=== PATIENT | female | born 1985 | race Two or more races ===

== ENCOUNTER 2018-09-17 09:15 | Emergency (ER) | payer OTHER ==
[2018-09-17 09:27] VITALS: TEMP 98.7; BMI 24.4
--- NOTE | 2018-09-17 10:11 | PDOC ---
History of Present Illness <Nara Solares - Last Filed: 09/17/18 13:56> - History of Present Illness Initial Comments: Ms. Stanley is a 32F by , 10 weeks , presenting today with vaginal bleeding, back pain, and cramping. Reports that she woke up this morning and noticed some blood in her underwear, similar in quantity to a period. Reports that she also noticed blood while she was urinating. Reports some chills. Denies fever. Denies blood clots. Reports mild shortness of breath and LUQ pain last night. Denies nausea and vomiting. She last saw her OB 2 weeks ago, and has another appointment on Tuesday. Continues taking vitamins. No known complications with prior pregnancies. <Zana Mclean - Last Filed: 09/17/18 19:37> - General Chief Complaint: Vaginal Bleeding Stated Complaint: 10 WK PREG / BLEED Time Seen by Provider: 09/17/18 09:30 Past History <Nara Solares - Last Filed: 09/17/18 13:56> - Past Medical History Asthma: Yes (uses albuterol prn) Cancer: No Cardiac Disorders: No COPD: No Diabetes: No HTN: No Seizures: No Thyroid Disease: No - Suicide/Smoking/Psychosocial Hx Smoking History: Never smoked Have you smoked in the past 12 months: No Hx Alcohol Use: No Drug/Substance Use Hx: No Hx Substance Use Treatment: No <Zana Mclean - Last Filed: 09/17/18 19:37> - Past Medical History Allergies/Adverse Reactions: Allergies Allergy/AdvReac Type Severity Reaction Status Date / Time No Known Allergies Allergy Verified 09/17/18 09:27 Home Medications: Ambulatory Orders Albuterol Sulfate Inhaler - [Ventolin HFA Inhaler -] 1 inhaler PRN 12/13/14 Vit/Iron Fum/Folic AC [ Tablet] 1 each PO DAILY 12/13/14 Ferrous Sulfate [Feosol] 325 mg PO DAILY 02/23/15 Ibuprofen [Motrin -] 600 mg PO QID PRN #60 tablet 02/25/15 Oxycodone HCl/Acetaminophen [Percocet 5/325 -] 1 tab PO Q4H #20 tablet 02/25/15 Review of Systems - Review of Systems Comments:: GENERAL/CONSTITUTIONAL: No fever. No weakness. Reports chills. HEAD, EYES, EARS, NOSE AND THROAT: No change in vision. No ear pain or discharge. No sore throat._ CARDIOVASCULAR: No chest pain or shortness of breath_ RESPIRATORY: Denies cough, hemoptysis. Reports shortness of breath (resolved). GASTROINTESTINAL: No nausea, vomiting, diarrhea or constipation. Reports LUQ pain (resolved). GENITOURINARY: No dysuria, frequency, or change in urination. Reports cramping. Reports vaginal bleeding. MUSCULOSKELETAL: No joint or muscle swelling or pain. Reports back pain. SKIN: No rash_ NEUROLOGIC: No headache, vertigo, loss of consciousness, or change in strength/ sensation. ENDOCRINE: No increased thirst. No abnormal weight change_ HEMATOLOGIC/LYMPHATIC: No anemia, easy bleeding, or history of blood clots._ ALLERGIC/IMMUNOLOGIC: No hives or skin allergy._ <Zana Mclean - Last Filed: 09/17/18 19:37> *Physical Exam - Vital Signs Last Vital Signs Temp Pulse Resp BP Pulse Ox 98.7 F 63 18 123/70 100 09/17/18 09:25 09/17/18 09:25 09/17/18 09:25 09/17/18 09:25 09/17/18 10:50 <Nara Solares - Last Filed: 09/17/18 13:56> - Vital Signs Last Vital Signs Temp Pulse Resp BP Pulse Ox 98.7 F 63 18 123/70 99 09/17/18 09:25 09/17/18 09:25 09/17/18 09:25 09/17/18 09:25 09/17/18 09:25 - Physical Exam Comments: GENERAL: Awake, alert, and oriented to person/place/time, in no acute distress_ HEAD: No signs of trauma, normocephalic, atraumatic _ EYES: PERRLA, EOMI, sclera anicteric, conjunctiva clear_ ENT: Hearing grossly normal, nares patent, oropharynx clear without exudates. No uvular deviation. Moist mucosa_ NECK: Normal ROM, supple, no lymphadenopathy, JVD, or masses_ LUNGS: No distress, speaks in full sentences, clear to auscultation bilaterally _ HEART: Regular rate and rhythm, normal S1 and S2, no murmurs appreciated, peripheral pulses normal and equal bilaterally._ ABDOMEN: Soft, normoactive bowel sounds. RLQ tenderness to palpation and LLQ pressure on palpation. PELVIC: Os closed, minimal blood clots visualized in the posterior fornix. No tenderness to left or right adnexa on bimanual exam. EXTREMITIES: Normal inspection, Normal range of motion, no edema. No clubbing or cyanosis_ NEUROLOGICAL: Cranial nerves II through XII grossly intact. Normal speech, normal gait, no focal sensorimotor deficits _ SKIN: Warm, Dry, normal turgor, no rashes or lesions noted_ <Zana Mclean - Last Filed: 09/17/18 19:37> ED Treatment Course - LABORATORY CBC & Chemistry Diagram: 09/17/18 11:00 09/17/18 11:00 - ADDITIONAL ORDERS Additional order review: Laboratory Results 09/17/18 09/17/18 09/17/18 11:00 11:00 11:00 Sodium 139 Potassium 4.1 Chloride 106 Carbon Dioxide 26 Anion Gap 7 L BUN 6.5 L Creatinine 0.4 L Est GFR (CKD-EPI)AfAm 161.99 Est GFR (CKD-EPI)NonAf 139.77 Random Glucose 88 Calcium 8.9 Total Bilirubin 0.3 AST 10 L ALT 22 Alkaline Phosphatase 67 Total Protein 7.0 Albumin 3.3 L Beta HCG, Quant Urine Color Yellow Urine Appearance Clear Urine pH 8.5 H D Ur Specific Harbinger 1.011 Urine Protein Negative Urine Glucose (UA) Negative Urine Ketones Negative Urine Blood 2+ H Urine Nitrite Negative Urine Bilirubin Negative Urine Urobilinogen 0.2 Ur Leukocyte Esterase Negative Urine WBC (Auto) 0 Urine RBC (Auto) 2 Urine Casts (Auto) 1 U Epithel Cells (Auto) 1.6 Urine Bacteria (Auto) 33.3 Blood Type O POSITIVE Antibody Screen Negative 09/17/18 11:00 Sodium Potassium Chloride Carbon Dioxide Anion Gap BUN Creatinine Est GFR (CKD-EPI)AfAm Est GFR (CKD-EPI)NonAf Random Glucose Calcium Total Bilirubin AST ALT Alkaline Phosphatase Total Protein Albumin Beta HCG, Quant 28743.9 Urine Color Urine Appearance Urine pH Ur Specific Harbinger Urine Protein Urine Glucose (UA) Urine Ketones Urine Blood Urine Nitrite Urine Bilirubin Urine Urobilinogen Ur Leukocyte Esterase Urine WBC (Auto) Urine RBC (Auto) Urine Casts (Auto) U Epithel Cells (Auto) Urine Bacteria (Auto) Blood Type Antibody Screen 09/17/18 11:00 RBC 4.52 MCV 87.5 MCHC 32.7 RDW 13.8 D MPV 8.3 Neutrophils % 69.9 Lymphocytes % 23.5 D Monocytes % 5.2 Eosinophils % 1.1 Basophils % 0.3 - Medications Given in the ED: ED Medications Discontinued Medications Generic Name Dose Route Start Last Admin Trade Name Bailey PRN Reason Stop Dose Admin Sodium Chloride 1,000 ml 09/17/18 11:20 09/17/18 11:52 Normal Saline - IV 09/17/18 11:21 1,000 ml ONCE ONE Administration <Nara Solares - Last Filed: 09/17/18 13:56> - LABORATORY CBC & Chemistry Diagram: 09/17/18 11:00 09/17/18 11:00 <Zana Mclean - Last Filed: 09/17/18 19:37> Medical Decision Making - Medical Decision Making 32F s/p and 10 weeks presenting with vaginal bleeding that started today associated with back pain and cramping. Feels that it is similar to her periods. No fever, no blood clots. No hx of STIs. Last OB visit 2 weeks ago, next one in 2 days. DDx includes threatened , molar , ectopic , ovarian torsion. Will obtain CBC, CMP, beta HCG quant, UA and urine culture, type and screen. 09/17/18 11:24 POC transabdominal US shows IUP, FHR of 178, possible ovarian cyst of 3cm x 2.5 cm. 09/17/18 12:20 OB US shows single intrauterine gestation of 12 weeks 0 days. FHR 179 bpm. Small right ovarian cyst. No torsion. 09/17/18 1300 Patient likely has threatened . We will discharge home with instructions for rest and pain control and strict return precautions to the ED as well as follow up with her OB in 2 days. <Zana Mclean - Last Filed: 09/17/18 19:37> *DC/Admit/Observation/Transfer <Nara Solares - Last Filed: 09/17/18 13:56> - Discharge Dispostion Decision to Admit order: No <Zana Mclean - Last Filed: 09/17/18 19:37> Diagnosis at time of Disposition: Threatened - Discharge Dispostion Disposition: HOME Condition at time of disposition: Stable - Referrals Referrals: Adilene Osorio MD [Staff Physician] - Sadia Arteaga MD [Staff Physician] - - Patient Instructions Printed Discharge Instructions: DI for Threatened Additional Instructions: Please avoiding any exertional activity that may strain your pelvis and avoid using vaginal products. Please use Tylenol over the counter as needed for pain control. Please monitor your bleeding with pads. If your bleeding saturates a pad, please keep count and change your pads. If you experience bleeding that requires more than 1 pad per hour, please return to the emergency room. Please return to the emergency room if you have an increase in bleeding, worsening abdominal pain, syncope, or any other concerning symptoms. - Post Discharge Activity Forms/Work/School Notes: Back to Work
[2018-09-17 11:20] LABS: BASO % 0.3 % (0-2.0); EOS % 1.1 % (0-4.5); HEMATOCRIT 39.6 % (32.4-45.2); LYMPH % 23.5 % (8-40); MCH 28.6 pg (25.7-33.7); MCHC 32.7 g/dl (32.0-36.0); MEAN CELL VOLUME 87.5 fl (80-96); MEAN PLT VOLUME 8.3 fl (7.5-11.1); MONO % 5.2 % (3.8-10.2); NEUT % 69.9 % (42.8-82.8); PLATELET COUNT 291 K/MM3 (134-434); RBC 4.52 M/mm3 (3.60-5.2); RDW 13.8 % (11.6-15.6); WHITE BLOOD COUNT 9.9 K/mm3 (4.0-10.0)
[2018-09-17] MEDS ORDERED: SODIUM CHLORIDE 0.9% 500 ML INFUS.BAG IV ONE (11:20)
[2018-09-17 11:47] LABS: ALBUMIN 3.3 g/dl (3.4-5.0); BILIRUBIN,TOTAL 0.3 mg/dL (0.2-1); BLOOD UREA NITROGEN 6.5 mg/dL (7-18); CALCIUM 8.9 mg/dL (8.5-10.1); CREATININE 0.4 mg/dL (0.55-1.3); POTASSIUM 4.1 mmol/L (3.5-5.1)
--- NOTE | 2018-09-17 11:59 | PDOC ---
Documentation entered by Marcelina Schaefer SCRIBE, acting as scribe for Nara Solares MD. Nara Solares MD: This documentation has been prepared by the Silvano camarillo Xhesika, SCRIBE, under my direction and personally reviewed by me in its entirety. I confirm that the documentation accurately reflects all work, treatment, procedures, and medical decision making performed by me. Attending Attestation - Resident Resident Name: Zana Mclean - ED Attending Attestation I have performed the following: I have examined & evaluated the patient, The case was reviewed & discussed with the resident, I agree w/resident's findings & plan - HPI HPI: 09/17/18 10:16 The patient is a 32 year old female, , currently 10 weeks , with a significant past medical history of asthma who presents to the ED with vaginal bleeding with minimal clots and cramping since this morning that felt like her menstrual cycle. The patient states she has been endorsing R lower back pain, intermittent lower abdominal pain and chills secondary to her symptoms. 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 LMP 06/28/18 but uncertain. no prior history of miscarriages. Denies fever, chills, chest pain, SOB, palpitation, dizziness, weakness, N, V, D , bladder and bowel problems, leg swelling, No new changes in medications. Allergies: NKDA Social history: Lives with family. No tobacco, ETOH or drug use. Surgical history: 2 C-sections Meds: as documented in EMR 09/17/18 11:59 09/17/18 12:49 - Physicial Exam PE: 09/17/18 10:16 Agree with the resident's HPI and PE as documented in the electronic medical record. NAD, well appearing, EOMI, PERRL, MMM, nl conjunctiva, anicteric; neck supple. lungs clear, RRR, abdomen soft. (+) bilateral lower quadrant tenderness worse in LLQ, no rebound, no guarding. no peritoneal findings. (+) R lower back tenderness, SNYDER x4, no focal neuro deficits. No peripheral edema. normal color for ethnicity, WWP. 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 blood in the vaginal vault, no CMT, closed os, left adnexal tenderness 09/17/18 11:59 09/17/18 12:04 - Medical Decision Making 09/17/18 12:02 hpi as documented VS reviewed, wnl. normotensive. DDx female VB: ectopic , miscarriage, demise, subchorionic hematoma, retained POC, normal first trimester bleeding, UTI in in . Fibroid uterus, vaginitis, infection, electrolyte/metabolic derangements, anemia. Considered but clinically doubt based on HPI and PE: unlikely ectopic. Bedside pelvic US performed for female with VB and /or abdominal pain. views obtained: TV and sagittal uterus, findings include live IUP visualized dated at 10w 4d, FHR 178 bpm. incidental right CL cyst measuring 2.5 x 3cm. Impression: live IUP, incidental right ovarian cyst. official sono to check for torsion/ovarian cyst/subchorionic hematoma MDM: Rh positive, no rhogam indicated VS wnl, normotensive, no tachy or hypoxia/respiratory distress. abdomen benign on reeval and no peritoneal findings, no VB here, controlled Beta hcg 77,000, needs to be trended TVUS with live iup at 12 weeks, right ovarian cyst - no torsion precautions for threatened , bleeding. tylenol for pain as needed pelvic rest incidental right ovarian cyst, no e/o torsion hydration, supportive care. has OB visit scheduled in 2 days and to bring results. Dispo: OB followup, bleeding precautions; return to ED if persistent and heavy vaginal bleeding, persistent pelvic pain not relieved by your prescribed medications, dizziness, shortness of breath, new and persistent fevers, other foul smelling discolored vaginal discharge, or for any other concerns. 09/17/18 12:51
[2018-09-17 12:29] LABS: EPI CELLS 1.6 /HPF (0-5/HPF); HYALINE CASTS 1 /lpf (0-8); PH,URINE 8.5 (5.0-8.0); URINE APPEARANCE CLEAR; URINE BACTERIA 33.3 /hpf (NEGATIVE); URINE BILIRUBIN NEGATIVE (NEGATIVE); URINE COLOR YELLOW; URINE GLUCOSE (UA) NEGATIVE (NEGATIVE); URINE KETONE NEGATIVE (NEGATIVE); URINE LEUK ESTERASE NEGATIVE (NEGATIVE); URINE NITRITE NEGATIVE (NEGATIVE); URINE PROTEIN NEGATIVE (NEGATIVE); URINE RBC 2 /hpf (0-4); URINE UROBILINOGEN 0.2 mg/dL (0.2-1.0); URINE WBC 0 /hpf (0-5)
[2018-09-17 14:14] VITALS: BP 111/66; PULSE 68
== END 2018-09-17 13:27 | disposition home or self-care (01) ==
LOC: JER 09:15
PROC: 3E0337Z Introduction of Electrolytic and Water Balance Substance into Peripheral Vein, Percutaneous Approach (ICD-10-PCS; principal; 2018-09-17)
DX: O20.0 Threatened abortion (principal); Z3A.10 10 weeks gestation of pregnancy; J45.909 Unspecified asthma, uncomplicated
CPT/HCPCS: 36415; 76801-TC; 80053; 81003; 84702; 85025; 86850; 86900; 86901; 87086; 99283-25

== ENCOUNTER 2019-01-23 17:00 | Emergency (ER) | payer OTHER ==
[2019-01-23 17:09] VITALS: BMI 28.1
--- NOTE | 2019-01-23 17:11 | PDOC ---
Rapid Medical Evaluation Chief Complaint: Labor Assessment Time Seen by Provider: 01/23/19 17:07 Medical Evaluation: Allergies Allergy/AdvReac Type Severity Reaction Status Date / Time No Known Allergies Allergy Verified 09/17/18 09:27 01/23/19 17:08 I have performed a brief in-person evaluation of this patient. The patient presents with a chief complaint of:headache with dizziness with 7 mos preg. + contraction Pertinent physical exam findings: pale. mild facial swelling / pain to left abd. I have ordered the following: sent to [facility] The patient will proceed to the ED for further evaluation. 01/23/19 17:10 Discharge Disposition - Diagnosis Headache in - Referrals - Patient Instructions - Post Discharge Activity
[2019-01-23] MEDS ORDERED: ACETAMINOPHEN 325 MG TABLET (FP) ONE (18:19)
[2019-01-23] MEDS ORDERED: ACETAMINOPHEN 325 MG TABLET (FP) PO ONE (18:30)
[2019-01-23 18:35] VITALS: PULSE 70
[2019-01-23] MEDS ORDERED: ELECTROLYTE-148 SOLN 1,000 ML IV SCH (18:45)
[2019-01-23 19:22] LABS: BASO % 0.5 % (0-2.0); EOS % 1.2 % (0-4.5); HEMATOCRIT 32.2 % (32.4-45.2); HEMOGLOBIN 10.4 GM/dL (10.7-15.3); LYMPH % 19.5 % (8-40); MCHC 32.2 g/dl (32.0-36.0); MEAN CELL VOLUME 83.8 fl (80-96); MEAN PLT VOLUME 8.7 fl (7.5-11.1); MONO % 6.2 % (3.8-10.2); NEUT % 72.6 % (42.8-82.8); PLATELET COUNT 300 K/MM3 (134-434); RBC 3.84 M/mm3 (3.60-5.2); RDW 14.2 % (11.6-15.6)
[2019-01-23 20:53] LABS: PLATELET ESTIMATE ADEQUATE
[2019-01-24 01:34] VITALS: BP 101/60; TEMP 98
== END 2019-01-23 21:45 | disposition home or self-care (01) ==
LOC: JER 17:00
DX: O26.893 Other specified pregnancy related conditions, third trimester (principal); R51 Headache; O62.0 Primary inadequate contractions; Z3A.28 28 weeks gestation of pregnancy
CPT/HCPCS: 36415; 85025; 99281-25

== ENCOUNTER 2019-03-18 13:15 | Inpatient (IN) | payer OTHER ==
[2019-03-18] MEDS ORDERED: ELECTROLYTE-148 SOLN 1,000 ML IV SCH ×2 (16:30→18:15)
[2019-03-18 17:07] LABS: BASO % 0.4 % (0-2.0); EOS % 0.8 % (0-4.5); HEMATOCRIT 34.4 % (32.4-45.2); HEMOGLOBIN 11.4 GM/dL (10.7-15.3); LYMPH % 18.3 % (8-40); MCH 27.7 pg (25.7-33.7); MEAN CELL VOLUME 83.9 fl (80-96); MEAN PLT VOLUME 8.9 fl (7.5-11.1); MONO % 6.4 % (3.8-10.2); NEUT % 74.1 % (42.8-82.8); PLATELET COUNT 256 K/MM3 (134-434); RDW 16.6 % (11.6-15.6); WHITE BLOOD COUNT 8.4 K/mm3 (4.0-10.0)
[2019-03-18 17:23] LABS: INR 0.93 (0.83-1.09)
[2019-03-18 17:26] LABS: ACTIVATED PTT 29.5 SECONDS (25.2-36.5)
[2019-03-18 17:42] LABS: ALBUMIN 2.6 g/dl (3.4-5.0); BILIRUBIN,TOTAL 0.2 mg/dL (0.2-1); BLOOD UREA NITROGEN 8.1 mg/dL (7-18); CALCIUM 8.5 mg/dL (8.5-10.1); CREATININE 0.5 mg/dL (0.55-1.3); POTASSIUM 4.3 mmol/L (3.5-5.1); TOT PROT 5.9 g/dl (6.4-8.2)
--- NOTE | 2019-03-18 20:16 | HP ---
Past Medical History - Primary Care Physician PCP:: Sadia Arteaga - Admission Chief Complaint: Previuos CS. Labor History of Present Illness: 33 yo EDC 03/30/19 EGA 38 + with previous CS for repeat CS History Source: Patient Limitations to Obtaining History: No Limitations - Past Medical History Pulmonary: Yes: Asthma ...: 3 ...Para: 2 ...Term: 1 ...: 1 ...EDC by Michele: 03/30/19 Heme/Onc: Yes: Anemia. No: Sickle Cell Disease - Past Surgical History Past Surgical History: Yes: Hx Myomectomy: No Hx Transabdominal Cerclage: No - Smoking History Smoking history: Never smoked Have you smoked in the past 12 months: No - Alcohol/Substance Use Hx Alcohol Use: No History of Substance Use: reports: None - Social History ADL: Independent History of Recent Travel: No Home Medications - Allergies Allergies/Adverse Reactions: Allergies Allergy/AdvReac Type Severity Reaction Status Date / Time No Known Allergies Allergy Verified 01/23/19 17:09 - Home Medications Home Medications: Ambulatory Orders Albuterol Sulfate Inhaler - [Ventolin HFA Inhaler -] 1 inhaler PRN 12/13/14 Vit/Iron Fum/Folic AC [ Tablet] 1 each PO DAILY 12/13/14 Ferrous Sulfate [Feosol] 325 mg PO DAILY 02/23/15 Review of Systems - Review of Systems Constitutional: reports: No Symptoms Eyes: reports: No Symptoms HENT: reports: No Symptoms Neck: reports: No Symptoms Cardiovascular: reports: No Symptoms Respiratory: reports: No Symptoms Gastrointestinal: reports: Abdominal Pain Genitourinary: reports: No Symptoms Breasts: reports: No Symptoms Reported Musculoskeletal: reports: No Symptoms Integumentary: reports: No Symptoms Neurological: reports: No Symptoms Endocrine: reports: No Symptoms Hematology/Lymphatic: reports: No Symptoms Psychiatric: reports: No Symptoms Physical Exam - Maternity Vital Signs: Vital Signs Temperature 98.6 F 03/18/19 18:39 Pulse Rate 64 03/18/19 18:39 Respiratory Rate 18 03/18/19 18:39 Blood Pressure 102/52 L 03/18/19 18:39 O2 Sat by Pulse Oximetry (%) Constitutional: Yes: Well Nourished, No Distress - Abdominal Exam/OB Number of Fetuses: Single Presentation: Vertex Contractions: Yes Regularity: Irregular Monitor Mode: External Category: I - Vaginal Exam/OB Dilatation (cm): closed Effacement (%): 80 Presentation: Vertex/Position - Labs Lab Results: CBC, BMP 03/18/19 16:32 03/18/19 16:32 Hemorrhage Risk Assessment - Risk Factors Medium Risk Factors: Yes: Prior , uterine surgery,or multiple laparotomies Risk Score: 1 Risk Level: Medium Risk Problem List - Problems (1) Previous delivery affecting , antepartum Code(s): O34.219 - MATERNAL CARE FOR UNSP TYPE SCAR FROM PREVIOUS DEL Assessment/Plan IUP at 38 week Previous CS x 2 labor Plan Repeat CS
[2019-03-18] MEDS ORDERED: CITRIC ACID/SODIUM CITRATE 30 ML UNIT-DOSE CUP PO ONE (20:18)
[2019-03-18] MEDS ORDERED: TERBUTALINE SULFATE 1 MG/1 ML VIAL SQ ONE ×2 (21:00→21:02)
--- NOTE | 2019-03-18 21:08 | CONSULT ---
Past Medical History, Laborist - Admission Chief Complaint: contractions History of Present Illness: pain History Source: Patient Limitations to Obtaining History: No Limitations - Past Medical History TIRE BUFFER: Denies/None Cardio/Vascular: Denies/None Pulmonary: Denies/None Gastrointestinal: Denies/None Hepatobiliary: Denies/None Renal/: Denies/None Reproductive: Denies/None ...: 3 ...Para: 2 ...Term: 1 ...: 1 ... Weeks Gestation by Dates: 38 ...EDC by Sono: 03/30/19 Heme/Onc: Denies/None Infectious Disease: Denies/None Psych: Denies/None Musculoskeletal: Denies/None Rheumatology: Denies/None ENT: Denies/None Endocrine: Denies/None Dermatology: Denies/None - Past Surgical History Past Surgical History: Yes: - Advance Directives Advance Directives: Yes: Living Will - Smoking History Smoking history: Never smoked Have you smoked in the past 12 months: No - Alcohol/Substance Use Hx Alcohol Use: No History of Substance Use: reports: None - Social History Usual Living Arrangement: With Significant Other Do you think of yourself as: Straight/Heterosexual ADL: Independent History of Recent Travel: No Review of Systems - Review of Systems Constitutional: reports: No Symptoms Eyes: reports: No Symptoms HENT: reports: No Symptoms Neck: reports: No Symptoms Cardiovascular: reports: No Symptoms Respiratory: reports: No Symptoms Gastrointestinal: reports: No Symptoms Genitourinary: reports: No Symptoms Breasts: reports: No Symptoms Reported Musculoskeletal: reports: No Symptoms Integumentary: reports: No Symptoms Neurological: reports: No Symptoms Endocrine: reports: No Symptoms Hematology/Lymphatic: reports: No Symptoms Psychiatric: reports: No Symptoms Physical Exam - Maternity Vital Signs: Vital Signs Temperature 98.6 F 03/18/19 18:39 Pulse Rate 64 03/18/19 18:39 Respiratory Rate 18 03/18/19 18:39 Blood Pressure 102/52 L 03/18/19 18:39 O2 Sat by Pulse Oximetry (%) Constitutional: Yes: Well Nourished, No Distress, Calm Eyes: Yes: WNL, Conjunctiva Clear, EOM Intact HENT: Yes: WNL, Atraumatic, Normocephalic Neck: Yes: WNL, Supple, Trachea Midline Cardiovascular: Yes: WNL, Regular Rate and Rhythm Lungs: Clear to auscultation Breast(s): Yes: WNL - Abdominal Exam/OB Fundal Height: 38 Number of Fetuses: Single Presentation: Vertex Contractions: Yes Regularity: Regular Intensity: Mild/Mod Monitor Mode: External Heart Rate Location: [facility] Category: I Accelerations: Uniform Decelerations: None - Vaginal Exam/OB Vaginal Bleediing: No Speculum Exam: No Presentation: Vertex/Position Station: -2 - Physical Exam Musculoskeletal: Yes: WNL Extremities: Yes: WNL Edema: Yes Integumentary: Yes: WNL Deep Tendon Reflex Grade: Normal +2 ...Motor Strength: WNL Psychiatric: Yes: WNL, Alert, Oriented - Labs Lab Results: CBC, BMP 03/18/19 16:32 03/18/19 16:32 Hemorrhage Risk Assessment - Risk Factors Medium Risk Factors: Yes: Prior , uterine surgery,or multiple laparotomies Risk Score: 1 Risk Level: Medium Risk Assessment/Plan: for iv hydrations and terbutaline, then if still chang, will possible proceed to c s , cervix is closed, -3, spoke w dr. siegel Procedures, Laborist - Status Monitor Mode: External Heart Rate Location: [facility] Monitor Accelerations: Uniform Monitor Decelerations: None Custodial Variability: Moderate (11-25) Short Term Variability: Present Position: Left Occiput Transverse Presentation: Vertex Station: -2 - Goldstein Score Dilation (cm): Closed Position of Cervix: Posterior Effacement %: 0-30 Station *: -2 Cervical consistency: Firm - Amniotic Membrane Amniotic Membrane Status: Intact
[2019-03-19 00:42] VITALS: BMI 28.3
[2019-03-19] MEDS ORDERED: CITRIC ACID/SODIUM CITRATE 30 ML UNIT-DOSE CUP PO ONE (04:30)
[2019-03-19] MEDS ORDERED: ELECTROLYTE-148 SOLN 500 ML IV ONE (04:30)
[2019-03-19] MEDS ORDERED: ELECTROLYTE-148 SOLN 1,000 ML IV SCH (05:00)
[2019-03-19] MEDS ORDERED: morphine SULFATE/PF 0.5 MG/ML (2cc Syringe - QUVA) ONE (05:33)
[2019-03-19] MEDS ORDERED: ONDANSETRON 4 MG/2 ML VIAL IVPUSH PRN (05:44)
[2019-03-19] MEDS ORDERED: ePHEDrine SULFATE 50 MG/1 ML AMPULE ONE (05:51)
[2019-03-19] MEDS ORDERED: ceFAZolin SODIUM 1 GM VIAL ONE ×2 (06:39)
[2019-03-19] MEDS ORDERED: PHENYLEPHRINE HCL 10 MG/1 ML SINGLE DOSE VIAL ONE (06:39)
[2019-03-19] MEDS ORDERED: OXYTOCIN 10 UNITS/ML VIAL ONE ×2 (06:39)
[2019-03-19] MEDS ORDERED: IBUPROFEN 600 MG TABLET (FP) PO PRN (06:40)
[2019-03-19] MEDS ORDERED: METHYLERGONOVINE MALEATE 0.2 MG/1 ML AMP IM PRN (06:40)
--- NOTE | 2019-03-19 06:43 | OP ---
Operative Note - Note: Operative Date: 03/19/19 Pre-Operative Diagnosis: Pain in labor / Previous Operation: Repeat Low Transverse Findings: Baby boy in LOT position Post-Operative Diagnosis: Same as Pre-op Surgeon: Sadia Arteaga Landscape Architect And Planner: Jj Gamez Anesthesia: Spinal Specimens Removed: Placenta Estimated Blood Loss (mls): 600 Operative Report Dictated: No
[2019-03-19] MEDS ORDERED: OXYTOCIN 20 UNITS in 0.9% NS 20 UNIT/1,000 ML INFUS.BAG IV SCH (06:45)
[2019-03-19] MEDS: ELECTROLYTE-148 SOLN 1,000 ML IV SCH ×2 (06:55)
[2019-03-19] MEDS: IBUPROFEN 800 MG/8 ML IJ IVPB PRN ×3 (07:15→22:07)
[2019-03-20] MEDS: IBUPROFEN 800 MG/8 ML IJ IVPB PRN (05:30)
[2019-03-20] MEDS: SIMETHICONE 80 MG TAB.CHEW (FP) PO PRN ×4 (05:35→19:59)
[2019-03-20] MEDS ORDERED: BISACODYL 10 MG SUPP.RECT RC PRN (06:40)
--- NOTE | 2019-03-20 08:06 | PN ---
Progress Note (short form) - Note Progress Note: 33 F s/p repeat C/S under duramorph spinal. Vital Signs Temp 98.2 F 03/20/19 05:37 Pulse 58 L 03/20/19 05:37 Resp 20 03/20/19 05:37 BP 104/54 L 03/20/19 05:37 Pulse Ox 98 03/19/19 07:00 Intake & Output 03/19/19 03/19/19 03/20/19 11:59 23:59 11:59 Intake Total 2000 1250 1750 Output Total 150 2600 2100 Balance 1850 -1350 -350 Weight 170 lb Intake: IV 2000 1000 1250 NORMAL SALINE+20 UNITS 1000 1250 OXYTOCIN - 20 unit In 1, 000 ml @ 125 mls/hr IV ASDIR TERRY Rx#:[id number] Plasma-Lyte 148 - 1,000 1000 ml @ 125 mls/hr IV ASDIR TERRY Rx#:[id number] Plasma-Lyte 148 - 500 ml 1000 @ 1000 mls/hr IV ONCE ONE Rx#:[id number] IVPB 250 500 Output: Urine 150 2600 2100 Castellano 150 2600 900 Void 1200 Other: Voiding Method Toilet Indwelling Catheter Toilet Height 5 ft 5 in Body Mass Index (BMI) 28.3 Weight 7 lb 9 oz Length 19.5 in CBC, BMP 03/18/19 16:32 03/18/19 16:32 - No anesthesia complications
[2019-03-20] MEDS ORDERED: DIPHTH,PERTUSS(ACELL),TET 0.5 ML DISP.SYRIN IM ONE (10:00)
[2019-03-20] MEDS: oxyCODONE HCL 5 MG TABLET PO PRN ×3 (11:38→19:59)
[2019-03-20] MEDS: ACETAMINOPHEN 325 MG TABLET (FP) PO PRN ×3 (11:40→19:58)
[2019-03-20 11:48] LABS: BASO % 0.4 % (0-2.0); HEMATOCRIT 31.8 % (32.4-45.2); HEMOGLOBIN 10.6 GM/dL (10.7-15.3); LYMPH % 11.7 % (8-40); MCH 27.8 pg (25.7-33.7); MCHC 33.4 g/dl (32.0-36.0); MEAN CELL VOLUME 83.3 fl (80-96); MEAN PLT VOLUME 8.5 fl (7.5-11.1); MONO % 5.3 % (3.8-10.2); NEUT % 81.6 % (42.8-82.8); PLATELET COUNT 199 K/MM3 (134-434); RBC 3.82 M/mm3 (3.60-5.2); RDW 16.8 % (11.6-15.6); WHITE BLOOD COUNT 10.3 K/mm3 (4.0-10.0)
[2019-03-21] MEDS: ACETAMINOPHEN 325 MG TABLET (FP) PO PRN ×2 (00:20→04:43)
[2019-03-21] MEDS: oxyCODONE HCL 5 MG TABLET PO PRN ×6 (00:20→21:40)
[2019-03-21] MEDS: SIMETHICONE 80 MG TAB.CHEW (FP) PO PRN ×4 (04:42→17:16)
[2019-03-21] MEDS: IBUPROFEN 600 MG TABLET (FP) PO PRN ×5 (04:46→21:40)
--- NOTE | 2019-03-21 08:17 | PN ---
Post Progress Note - Subjective Subjective: 33 yo Para 3 status post repeat , seen and evaluated. She c/o incision pain. Post Day: 2 Type of Delivery: Repeat C/S Vital Signs: Vital Signs Temperature 98.5 F 03/20/19 20:52 Pulse Rate 67 03/20/19 20:52 Respiratory Rate 20 03/20/19 20:52 Blood Pressure 107/69 03/20/19 20:52 O2 Sat by Pulse Oximetry (%) 98 03/19/19 07:00 Breast Exam: Yes: Soft Incision: Yes: Dressing dry and intact Abdomen/GI: Yes: Abdomen soft, Tolerating PO Lochia: Yes: Rubra Lochia, amount: Small Extremities: Yes: Calves non-tender Activity: Ambulating - Labs Labs: CBC WBC 10.3 K/mm3 (4.0-10.0) H 03/20/19 11:00 RBC 3.82 M/mm3 (3.60-5.2) 03/20/19 11:00 Hgb 10.6 GM/dL (10.7-15.3) L 03/20/19 11:00 Hct 31.8 % (32.4-45.2) L 03/20/19 11:00 MCV 83.3 fl (80-96) 03/20/19 11:00 MCH 27.8 pg (25.7-33.7) 03/20/19 11:00 MCHC 33.4 g/dl (32.0-36.0) 03/20/19 11:00 RDW 16.8 % (11.6-15.6) H 03/20/19 11:00 Plt Count 199 K/MM3 (134-434) D 03/20/19 11:00 MPV 8.5 fl (7.5-11.1) 03/20/19 11:00 Absolute Neuts (auto) 8.4 K/mm3 (1.5-8.0) H 03/20/19 11:00 Neutrophils % 81.6 % (42.8-82.8) 03/20/19 11:00 Lymphocytes % 11.7 % (8-40) D 03/20/19 11:00 Monocytes % 5.3 % (3.8-10.2) 03/20/19 11:00 Eosinophils % 1.0 % (0-4.5) 03/20/19 11:00 Basophils % 0.4 % (0-2.0) 03/20/19 11:00 Nucleated RBC % 0 % (0-0) 03/20/19 11:00 Assessment/Plan Status post repeat Ambulation Analgesia as needed Continue routine post op care
--- NOTE | 2019-03-21 14:24 | PATH ---
Surgical Pathology Report Patient Name: MICHA FLORES Med. Rec. 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 Specimen(s) Received PLACENTA Clinical History Previous x2 2010 and 2014 Final Diagnosis PLACENTA, SECTION: 496 G THIRD TRIMESTER PLACENTA WITH TRIVASCULAR UMBILICAL CORD AND MILD ACUTE CHORIOAMNIONITIS. Electronically Signed Elma Valero M.D. Gross Description The specimen is received fresh labeled placenta and is a 496 gram, 19.5 x 14.0 x 3.0 cm. placenta with attached membranes and umbilical cord. The attached membranes are raines, translucent with focal opacities and insert marginally. The umbilical cord measures 34 cm. in length and averages 1.1 cm. in diameter. The cord inserts eccentrically, 3.5 cm. to the nearest margin. No true knots or strictures are identified. Cut surface of the umbilical cord reveals 3 vessels. The surface is cagle-blue with minimal fibrin deposition and appropriate caliber vessels. The maternal surface is red-brown with focal defects. Sectioning reveals red-brown, spongy parenchyma. No lesions are identified. Cyanide Case Hardener sections are submitted in three cassettes as follows: 1- membrane rolls and umbilical cord; 2-3- full thickness sections of placenta. /03/20/2019 [facility]03/20/2019
[2019-03-22] MEDS: oxyCODONE HCL 5 MG TABLET PO PRN ×2 (02:32→06:40)
[2019-03-22] MEDS: IBUPROFEN 600 MG TABLET (FP) PO PRN ×3 (02:32→10:39)
--- NOTE | 2019-03-22 07:03 | DS ---
Physical Exam-VEGETABLE TIER Vital Signs: Vital Signs Temperature 98.0 F 03/21/19 22:00 Pulse Rate 65 03/21/19 22:00 Respiratory Rate 18 03/21/19 22:00 Blood Pressure 126/74 03/21/19 22:00 O2 Sat by Pulse Oximetry (%) 97 03/21/19 21:00 Constitutional: Yes: Well Nourished Eyes: Yes: Conjunctiva Clear HENT: Yes: Atraumatic Neck: Yes: Supple Cardiovascular: Yes: Regular Rate and Rhythm Respiratory: Yes: Regular Gastrointestinal: Yes: Normal Bowel Sounds ...Rectal Exam: Yes: WNL Renal/: Yes: WNL Pelvis: Yes: WNL External Genitalia: Yes: Normal Vaginal Exam: Yes: Normal Cervix: Yes: Normal Uterus: Yes: Firm Extremities: Yes: WNL Wound/Incision: Yes: Well Approximated, Steri Strips (in place) Neurological: Yes: Alert, Oriented ...Motor Strength: WNL Psychiatric: Yes: Alert, Oriented Labs: CBC, BMP 03/20/19 11:00 03/18/19 16:32 Delivery - Delivery Type of Anesthesia: Spinal Episiotomy/Laceration: None EBL (cc): 600 Delivery, Single - Stages of Labor Date 1st Stage Initiatied: 03/18/19 Time 1st Stage Initiated: 13:00 Date of Delivery: 03/19/19 Time of Delivery: 05:58 Time Placenta Delivered: 06:00 - Condition of Infant 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 - 1 Minute Total Score: 9 5 Minutes Total Score: 9 - Feeding Plan Initial Plan: Elected not to breastfeed exclusively throughout hospitalization Discharge Summary Problems reviewed: Yes Reason For Visit: REPEAT Current Active Problems Previous delivery affecting , antepartum (Acute) Procedures: Principal: Repeat Low Transverse Hospital Course: Routine care Health Concerns: None Plan of Treatment: Ambulation Analgesia as needed F/U with MD in 2 weeks Goals: Resume regular activities in 4-6 weeks Condition: Good - Instructions Diet, Activity, Other Instructions: Regular diet No driving, no sexual intercourse x 4 weeks F/U with MD in 2 weeks Referrals: Mena Chavez [Primary Care Provider] - Disposition: HOME - Home Medications Comprehensive Discharge Medication List: Ambulatory Orders Albuterol Sulfate Inhaler - [Ventolin HFA Inhaler -] 1 inhaler PRN 12/13/14 Vit/Iron Fum/Folic AC [ Tablet] 1 each PO DAILY 12/13/14 Ferrous Sulfate [Feosol] 325 mg PO DAILY 02/23/15
[2019-03-22 09:25] VITALS: BP 98/68; PULSE 72; TEMP 98.1
[2019-03-22] MEDS: ACETAMINOPHEN 325 MG TABLET (FP) PO PRN (10:40)
[2019-03-22 10:50] LABS: BASO % 0.3 % (0-2.0); EOS % 2.1 % (0-4.5); HEMATOCRIT 32.9 % (32.4-45.2); LYMPH % 18.3 % (8-40); MCH 27.9 pg (25.7-33.7); MCHC 33.5 g/dl (32.0-36.0); MEAN CELL VOLUME 83.5 fl (80-96); MEAN PLT VOLUME 8.3 fl (7.5-11.1); MONO % 6.2 % (3.8-10.2); NEUT % 73.1 % (42.8-82.8); PLATELET COUNT 253 K/MM3 (134-434); RBC 3.94 M/mm3 (3.60-5.2); RDW 16.9 % (11.6-15.6); WHITE BLOOD COUNT 8.6 K/mm3 (4.0-10.0)
--- NOTE | 2019-03-22 14:40 | OP ---
DATE OF OPERATION: 03/19/2019 PREOPERATIVE DIAGNOSIS: 39 weeks gestation with previous section and pain, in labor. POSTOPERATIVE DIAGNOSIS: 39 weeks gestation with previous section and pain, in labor. PROCEDURE: Repeat low transverse section. SURGEON: Sadia Arteaga MD AIR SAMPLING AND MONITORING: COLE Galvez ANESTHESIA: Spinal. COMPLICATIONS: None. ESTIMATED BLOOD LOSS: 600 mL. DESCRIPTION OF PROCEDURE: Patient was taken to the operating room where spinal anesthesia was administered. Patient was then prepped and draped in proper sterile fashion. A Pfannenstiel skin incision was then made and carried down to the underlying layer of fascia. The fascia was incised in the midline and extended laterally. The superior aspect of the fascial incision was then grasped with a Phoebe clamp, elevated, and the rectus muscle dissected off bluntly. Attention was then turned to the inferior aspect of the fascial incision which, in a similar fashion, was then grasped with a Phoebe clamp, elevated, and the rectus muscles dissected off bluntly. The rectus muscle was then in the midline. The peritoneum identified and entered sharply with the Metzenbaum scissors. The peritoneal incision was then extended superiorly and inferiorly with good visualization of the bladder. A bladder blade was then inserted. The lower uterine segment was incised using a 10 blade. This incision was extended laterally. Then, the head was delivered atraumatically. Nose and mouth were suctioned and the cord clamped and cut. The was handed to the waiting residence life coordinator. The placenta was removed manually. The uterus exteriorized and cleared of all clots and debris. The uterine incision was repaired using 0 Biosyn in a running locked fashion. A second layer of the same suture was used as a means to provide excellent hemostasis. Then, the pelvis was then completely irrigated. The uterus was returned to the abdomen. The peritoneum was closed using 2-0 Biosyn. The fascia was reapproximated using 0 Vicryl in a running fashion, and the skin was closed in subcuticular fashion using 3-0 Vicryl. Patient tolerated procedure well. Patient was then taken to PACU in stable condition. PATHOLOGY: Placenta. Humera [id number]
== END 2019-03-22 12:00 | disposition home or self-care (01) | DRG 540 ==
LOC: JDEL 13:15 → JLDR 03-19 → J3W 03-19 08:30
PROVIDERS: ADMIT Obstetrics & Gynecology; ATTEND Obstetrics & Gynecology
PROC: 10D00Z1 Extraction of Products of Conception, Low, Open Approach (ICD-10-PCS; principal; 2019-03-19)
DX: O34.219 Maternal care for unspecified type scar from previous cesarean delivery (principal); Z3A.38 38 weeks gestation of pregnancy; Z37.0 Single live birth
CPT/HCPCS: 36415; 80053; 85025; 85610; 85730; 86593; 86850; 86900; 86901; 88307-TC; 90715

== ENCOUNTER 2021-02-11 09:03 | Emergency (ER) | payer OTHER ==
[2021-02-11 09:28] VITALS: BP 101/70; PULSE 70; TEMP 98.9; BMI 23.3
[2021-02-11 10:45] LABS: HCG,QUALITATIVE URINE Negative
[2021-02-11 10:58] LABS: EPI CELLS 7 /uL (0-25.1); HYALINE CASTS 1 /uL (0-3.1); URINE APPEARANCE CLEAR; URINE BACTERIA 4 /uL (0-1359); URINE BILIRUBIN NEGATIVE (NEGATIVE); URINE COLOR YELLOW; URINE GLUCOSE (UA) NEGATIVE (NEGATIVE); URINE KETONE NEGATIVE (NEGATIVE); URINE LEUK ESTERASE TRACE (NEGATIVE); URINE NITRITE NEGATIVE (NEGATIVE); URINE PROTEIN NEGATIVE (NEGATIVE); URINE RBC 28 /uL (0-23.9); URINE UROBILINOGEN 0.2 mg/dL (0.2-1.0); URINE WBC 33 /uL (0-25.8)
== END 2021-02-11 11:38 | disposition home or self-care (01) ==
LOC: JER 09:03
DX: R05.1 Acute cough (principal); N30.00 Acute cystitis without hematuria
CPT/HCPCS: 81003; 84703; 87086; 87804; 99283-25; C9803; U0003; U0005